=== PATIENT | male | born 1935 | race Caucasian/White ===

== ENCOUNTER 2024-04-10 06:52 | Day surgery (SDC) | payer OTHER, MEDICARE ==
[2024-04-08 14:48] LABS: Absolute Eosinophils 0.3 K/uL (0-0.5); Absolute Lymphocytes (CBC) 2.7 K/uL (0.7-4.9); Absolute Monocytes 0.9 K/uL (0.1-1.3); Absolute Neutrophil 3.8 K/uL (1.8-8.0); Basophils % 0.5 % (0-1.3); Eosinophils % 4.1 % (0-4.4); Hemoglobin 13.3 g/dL (13.6-17.9); Lymphocytes % 35.2 % (15.3-44.8); MCH 30.7 pg (27.0-35.0); MCHC 32.5 g/dL (32.0-36.0); MCV 94.3 fL (80-100); MPV 9.5 fL (7.6-11.3); Monocytes % 11.6 % (3.3-12.3); Neutrophils % 48.6 % (41.7-73.7); Platelets 219 thou/uL (152-406); RBC Red Blood Cell Count 4.35 M/uL (4.33-5.43); Red Cell Distribution Width 12.6 % (12.1-15.2)
[2024-04-08 14:55] LABS: Anion Gap 6.8 mEq/L (5.0-15.0); Potassium 4.8 mEq/L (3.5-5.1)
[2024-04-10] MEDS ORDERED: HEPA 1000U/500MLS 2,000 UNIT/1,000 ML BAG IV ONE (06:54)
[2024-04-10] MEDS ORDERED: ATROPINE SULF 1 MG/10 ML SYR IV ONE (06:55)
[2024-04-10] MEDS ORDERED: LIDOCAINE 1% 20 ML MDV ONE (06:55)
[2024-04-10] MEDS ORDERED: MIDAZOLAM HCL 2 MG/2 ML INJ ONE (06:55)
[2024-04-10] MEDS ORDERED: NA CHLORIDE 0.9% 500 ML ONE (06:55)
[2024-04-10] MEDS ORDERED: FENTANYL CITR 100 MCG/2 ML ONE (06:55)
[2024-04-10] MEDS ORDERED: TICAGRELOR 90 MG TABLET PO ONE (06:56)
[2024-04-10] MEDS ORDERED: HEPARIN 10,000 UNIT/10 ML VIAL IV ONE (06:56)
[2024-04-10] MEDS ORDERED: ASPIRIN 325 MG TAB ONE (06:56)
[2024-04-10] MEDS ORDERED: CLOPIDOGREL 75 MG TABLET ONE (06:56)
[2024-04-10 07:25] VITALS: TEMP 97.6
[2024-04-10 11:37] VITALS: O2SAT 98
--- NOTE | 2024-04-10 12:17 | OP ---
Date of Procedure: 04/10/2024 Surgeon: Rafa Noonan Procedures Performed: 1.Left heart catheterization. 2.Selective coronary angiogram of bypass graft. 3.Percutaneous coronary intervention of the right coronary artery with Synergy 3.0 x 38 mm drug-elut ing stent. Indication For Procedure: Shortness of breath, abnormal stress test, history of CABG. Sedation Time: 45 minutes with 2 of Versed and 50 of fentanyl. Complications: None. Estimated Blood Loss: Less than 50 cc. Access: Right common femoral artery, closed by Angio-Seal. Description Of Procedure: After risks, benefits, and alternatives were explained to the patient, pat ient agreed to proceed with the procedure and signed informed consent. The patient was brought back to the laborer [employer], prepped and draped in sterile fashion. A time-out was performed. Sedation was admi nistered. Right common femoral artery ultrasound-guided micropuncture technique, access was obtained . Next, a JL4 catheter was advanced over the J-wire for selective coronary angiogram of left coronar y system that was exchanged for a JR4 catheter that was advanced into the LV cavity. LVEDP was obtai matty. Pullback did not show any gradient. Catheter was used for selective angiogram of the right cor onary systems and for the SVG to OM and ANNE to LAD. The catheter was placed and exchanged for a JR4 guide. Heparin was administered. CT was therapeutic. Runthrough wire into the RCA. I pre-dilated the mid RCA lesions with NC 2.5/3.0 mm balloons and a wolverine 2.5 cutting balloon. Next, Synergy 3.0 x 38 mm drug-eluting stent was placed across the lesion that was postdilated with NC 3.5 and NC 4 .0 mm balloons. Final angiogram shows MALORIE-3 flow. Wire was removed and sheath was removed and Mervat o-Seal was used to close the right common femoral artery. Hemostasis was achieved and patient was mo mario back to recovery in stable condition. Findings: 1.Left main is ostial 60% disease. 2.LAD: Proximal to mid 100% occluded, gives 1 diagonal that is small in size. 3.Left circ: Proximal occluded. 4.RCA: Ostial to proximal 60% disease, mid stent got 99% ISR, PCI done with Synergy 3.0 x 38 mm yoseph g-eluting stents from ostial to mid RCA, distal mild LI, RPDA/RPLV, mild LI. Grafts: 1.ANNE to LAD is patent. 2.SVG to OM is patent. 3.LVEDP is 22 mmHg. Assessment: 1.Significant left anterior descending, left circumflex disease with patent grafts, left internal ma mmary artery to left anterior descending and saphenous vein graft to obtuse marginal. 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 Plan: 1.Aspirin 81 mg daily for life. 2.Brilinta 180 x1 was given in the laborer [employer] processing, continue Brilinta 90 mg p.o. b.i.d. for 12 months. 3.Continue aggressive medical treatment for CAD. AUBREY/VITALY Voice ID: [id number] Report ID: [id number]
[2024-04-10 13:20] VITALS: BP 165/74
--- NOTE | 2024-04-10 16:21 | EKG ---
Test Date: 2024-04-08 Test Time: 14:10:47 Product Safety Head: ET MEASUREMENT RESULTS: Intervals: Rate: 61 ME: 208 QRSD: 88 QT: 446 QTc: 448 [place]: P: -4 ME: 208 QRS: 64 T: 99 INTERPRETIVE STATEMENTS: Normal sinus rhythm Nonspecific ST and T wave abnormality Abnormal ECG Compared to ECG 08/22/2017 06:34:04 ST (T wave) deviation now present T-wave abnormality no longer present Possible ischemia no longer present Electronically Signed On 04-10-24 16:17:27 CDT by Cliff Reid
== END 2024-04-10 12:30 | disposition home or self-care (01) ==
LOC: CCL 06:52
PROVIDERS: ATTEND Internal Medicine Interventional Cardiology
DX: I25.10 Atherosclerotic heart disease of native coronary artery without angina pectoris (principal); I25.82 Chronic total occlusion of coronary artery; T82.855A Stenosis of coronary artery stent, initial encounter; I65.23 Occlusion and stenosis of bilateral carotid arteries; I10 Essential (primary) hypertension; E78.5 Hyperlipidemia, unspecified; Z95.1 Presence of aortocoronary bypass graft; Z87.891 Personal history of nicotine dependence; Z79.82 Long term (current) use of aspirin; Z79.02 Long term (current) use of antithrombotics/antiplatelets; Z79.899 Other long term (current) drug therapy; Z82.49 Family history of ischemic heart disease and other diseases of the circulatory system
CPT/HCPCS: 93005; 85025; 80048; 36415; 85610; 85347 ×2; 85730; 93459; 76937; C1893; C1760; Q9967; G0269; C1725; C9600; J2001; J2250; J3010; J7040; 93458; 99152; 99153; J0461

== ENCOUNTER 2025-07-21 07:40 | Day surgery (SDC) | payer OTHER, MEDICARE ==
[2025-07-17 09:10] LABS: Absolute Lymphocytes (CBC) 2.3 K/uL (0.7-4.9); Hematocrit 41.3 % (39.6-49.0); Hemoglobin 14.1 g/dL (13.6-17.9); MCH 31.3 pg (27.0-35.0); MCHC 34.2 g/dL (32.0-36.0); MCV 91.6 fL (80-100); MPV 8.9 fL (7.6-11.3); Nucleated RBC Absolute Count 0.0 (0-0); Nucleated Red Blood Cells % 0.0 % (0-0); RBC Red Blood Cell Count 4.51 M/uL (4.33-5.43); White Blood Count 8.60 thou/uL (4.3-10.9)
--- NOTE | 2025-07-17 09:20 | RAD REPORT ---
EXAMINATION: TWO VIEW CHEST XR CLINICAL INDICATION: pre procedure TECHNIQUE: 2 views of the chest was performed. COMPARISON: 01/09/2024 FINDINGS: Moderate right pleural effusion is seen. Lungs appear emphysematous with mild interstitial edema like ly present. Heart is mildly to moderately enlarged. No displaced fractures evident. Sternotomy wires. IMPRESSION: Small/moderate right pleural effusion.
[2025-07-17 09:21] LABS: PT Prothrombin Time 12.2 SECONDS (10-13.0); PTT, Activated Partial Thromb 29.4 SECONDS (27.2-37.4); Protime INR 1.08
[2025-07-17 09:29] LABS: Anion Gap 9.1 mEq/L (5.0-15.0); BUN Blood Urea Nitrogen 20.0 mg/dL (7-18); Glucose Level 102.0 mg/dL (74-106); Potassium 4.1 mEq/L (3.5-5.1)
[2025-07-21] MEDS ORDERED: NA CHLORIDE 0.9% 500 ML ONE (07:47)
[2025-07-21] MEDS ORDERED: HEPARIN 10,000 UNIT/10 ML VIAL IV ONE (08:16)
[2025-07-21] MEDS ORDERED: HEPA 1000U/500MLS 2,000 UNIT/1,000 ML BAG IV ONE (08:16)
[2025-07-21] MEDS ORDERED: LIDOCAINE 1% 20 ML MDV ONE (08:16)
[2025-07-21] MEDS ORDERED: MIDAZOLAM HCL 2 MG/2 ML INJ ONE (08:29)
[2025-07-21] MEDS ORDERED: FENTANYL CITR 100 MCG/2 ML ONE (08:29)
[2025-07-21 09:51] VITALS: TEMP 97.6
[2025-07-21 12:04] VITALS: BP 161/69; O2SAT 96
--- NOTE | 2025-07-21 20:45 | OP ---
Date of Procedure: 07/21/2025 Surgeon: Rafa Noonan Procedure Performed: Selective coronary angiogram of bypass graft. Indication For Procedure: History of CAD, CABG, PCI of the RCA a year ago, had an abnormal cardiac c ath. Complications: None. Estimated Blood Loss: Less than 50 cc. Access: Right common femoral artery closed by Mynx. Sedation Time: 30 minutes with 1 of Versed and 25 of fentanyl. Description Of Procedure: After risks, and benefits, and alternatives were explained to the patient, patient agreed to proceed with procedure and signed informed consent. The patient was brought back to the laboratory inspector, prepped and draped in sterile fashion. Time-out was performed. Sedation was admini stered. Next, right common femoral artery access was obtained using ultrasound-guided micropuncture technique. A JL4 catheter was advanced to the aortic root for selective angiogram of the left torres ry artery system, that was later exchanged with a JR4 catheter for selective angiogram of the right c oronary artery system, and then that catheter was used for the graft angiogram. At the end of proced ure, catheter was removed over a J-wire. Sheath was removed. Mynx was applied. Hemostasis was achi eved, and the patient was moved back to recovery in stable condition. Findings: 1. Left main with ostial 50% disease with dampening of the catheter. 2. LAD; mid 100% occluded. Before that, proximal LAD got a stent into the diagonal and that stent th e proximal edge got 50% to 60% disease. 3. Diagonal 1; the stent is extending from the proximal LAD into the mid diagonal. It is patent, the n the diagonal got diffuse disease. 4. Left circ; proximal occluded. 5. RCA; there is a stent extending from the ostium to the mid RCA, probably 2 layers of stent. That stent got ostial 30% ISR with no dampening of the catheter. 6. RPDA; mild luminal irregularities. 7. RPLB; with proximal 40% disease. Grafts: 1. ANNE to LAD is patent. 2. SVG to OM is patent. Assessment And Plan: 1. Significant [place] CAD with patent grafts. 2. Mild ISR of the ostial RCA stent. Plan is to continue medical management. AUBREY/VITALY Voice ID: [id number] Report ID: [id number]
== END 2025-07-21 12:02 | disposition home or self-care (01) ==
LOC: CCL 07:40
PROVIDERS: ATTEND Internal Medicine Interventional Cardiology
DX: I25.10 Atherosclerotic heart disease of native coronary artery without angina pectoris (principal); I25.82 Chronic total occlusion of coronary artery; T82.855A Stenosis of coronary artery stent, initial encounter; I65.22 Occlusion and stenosis of left carotid artery; I10 Essential (primary) hypertension; E78.2 Mixed hyperlipidemia; Z87.891 Personal history of nicotine dependence; Z79.82 Long term (current) use of aspirin; Z79.899 Other long term (current) drug therapy; Z82.49 Family history of ischemic heart disease and other diseases of the circulatory system
CPT/HCPCS: 93005; 85025; 80048; 36415; 85610; 85730; 71046; 93455; 76937; C1893; Q9966; J2003; J2250; J3010; J1644; J7040; C1760; 99152; 99153